=== PATIENT | male | born 1945 | race Caucasian/White ===

== ENCOUNTER 2025-04-19 10:29 | Outpatient (OUT) | payer BC, SELFPAY ==
--- OUTSIDE RECORDS SUMMARY | 2024-08-19 09:00 | XMS_ITS ---
Author Organization [facility] Address [address] [place] [address] Care Team Providers Care Patient Services Specialist Name Role Phone PCP, NO Primary Care Provider Ino Lee Unavailable [phone] Dolores Norris Unavailable [phone] REASON FOR VISIT RIGHT KNEE PAIN Medications Medication SIG (Take, Route, Frequency, Duration) Notes Start Date End Date Status Medrol Dose Pack 4 mg as directed ORAL DIRECT ED 05/17/2023Not-TakingBactrimUnknown Encounters Encounter Location Date Provider Diagnosis [facility] Office [address] [place] [address] 08/19/2024 Dolores Norris Plan Of Treatment No Information Progress Notes * RADHA FERRARO FDOB:[birth year] (79 yo M)Acc No.[id number]:08/19/2024 Patient:?RADHA FERRARO :?Dolores Norris CNPDOB:1945???Age:78 Y ???Sex:MaleDate:08/19/2024Phone:[phone]:[address], [place], [place]Qeh:NO PCP Subjective: * Chief Complaints: * 1 . RIGHT KNEE PAIN. * Medical History: * Medications: N ot-Taking/PRN Medrol Dose Pack 4 mg tablet as directed ORAL DIRECTED , Unknown Bactrim Objective: * Vitals: Assessment: Plan: * Treatment: Forms: * Images: * Electronic signature of Dolores Norris CNP on 04/19/2025 at 10:36 AM ESTSign off status: Pending * Provider: Dionicio Norris CNP Date: 0 08/19/2024 Generated for Printing/Faxing/eTransmitting on:?04/19/2025 10:36 AM EST
--- OUTSIDE RECORDS SUMMARY | 2025-04-18 05:54 | XMS_ITS | Continuity of Care Document ---
Author Organization [facility] Address [address] [place] [address] Phone Care Team Providers Care Rn Compliance Name Role Phone NO FAMILY, PHYSICIAN Primary Care Provider Unava Leticia De La Fuente DO Emergency Provider Miguel Prado MD Admit Provider Miguel Prado MD Other Provider Gamal Moreno MD Attending Provider Gamal Moreno MD Other Provider Shelly Waite APRN Primary Care Provider Shelly Waite APRN Attending Provider Stacie Bolivar APRN Attending Provider Care Teams Patient Care Team Team Status: Active Member Role/Relationship Status Dates Shelly Waite APRN VACUUM FILTER OPERATOR-C Primary Care Provider Active Visit Care Team Team Status: Active Member Role/Relationship Status Dates PHYSICIAN NO FAMILY Primary Care Provider Active Start: February 15, 2025 Sanjuana العلي ProviderActiveStart: February 15, 2025 Husam Vann ProviderActiveStart: February 15, 2025 Clyde Vann ProviderActiveStart: February 15, 2025 Viktor Barger ProviderActiveStart: February 15, 2025 Clyde Barger ProviderActiveStart: February 15, 2025 Visit Care Team Team Status: Inactive Member Role/Relationship Status Dates Shelly Waite APRN VACUUM FILTER OPERATOR-C Primary Care Provider Active Start: February 032024 End: February 21, 2025Shelly Waite APRN VACUUM FILTER OPERATOR-CAttending ProviderActive Start: February 21, 2025 End: February 21, 2025 Visit Care Team Team Status: Inactive Member Role/Relationship Status Dates Shelly Waite APRN VACUUM FILTER OPERATOR-C Primary Care Provider Active Start: March End: March 21, 2025Shelly Waite APRN VACUUM FILTER OPERATOR-CAttenyang ProviderActive Start: March 21, 2025 End: March 21, 2025 Visit Care Team Team Status: Active Member Role/Relationship Status Dates Shelly Waite APRN VACUUM FILTER OPERATOR-C Primary Care Provider Active Start: March Marci Jo ProviderActiveStart: March 27, 2025 Patient Care Team Team Status: Inactive Member Role/Relationship Status Dates Shelly Waite APRN VACUUM FILTER OPERATOR-C Primary Care Provider Active Start: April 182024 End: April 18, 2025Shelly Waite APRN VACUUM FILTER OPERATOR-CAttenyang ProviderActive Start: April 18, 2025 End: April 18, 2025 Chief Complaint and Reason for Visit Chief Complaint Admit Date rt arm pain post surgery February 15, 2025 3:03pm [facility] Care/Hospital f/u February 21 10:49am 4 week F/U March 21, 2025 8 :43am Open Wound March 27, 2025 2 :13pm 4 week f/u April 18, 2025 10:21am Reason for Visit Admit Date Benign essential HTN February 15 3:03pm Cellulitis of arm, right February 15, 2025 3:03pm Skin cancer February 15, 2025 3:03pm Cellulitis of arm, right February 21, 2025 10:49am Hospital discharge follow-up February 032024 10:49am Hypertension February 21, 2025 10:49am Open wound of arm with complication Sept ember 2024 10:49am Hypertension March 21, 2025 8 :43am Cellulitis of arm, right March 27 2 025 2:13pm Open wound of arm with complication Octo 2024 2:13pm S/P Mohs surgery for basal cell carcinom a March 27, 2025 2:13pm Hypertension April 18, 2025 10:21am Reason for Referral Type Reason(s) Provider Provider Contact Information Mercedes augustine Address Start Date Her office is accepting new patients. She will be your Primary Care Provider. Please bring your insurance card and a photo ID.Shelly Waite APRN PRODUCTION TROUBLESHOOTER Work Phone: [phone] [facility] [address] Allergies, Adverse Reactions, Alerts Allergen Type Severity Reaction Last Updated Verified Status No Known Allergies Allergy Unknown April 18, 2025 10:24amYesActive Social History Smoking Status Status Start Date End Date Date of Observa tion Never smoked tobacco (finding) March 27, 2025 2:26pm Observation Status Observation Response Date of Response Legal Sex [facility] (finding[facility] 1945 Problems Active Problems Problem Diagnosis/Recorded Date Onset Date Stat S/P Mohs surgery for basal c ell carcinoma February 26, 2025 1:24pm Unknown Active Screening for prostate cancer April 18, 2025 10:3 8am Unknown Active Cellulitis of arm, right February 15, 2025 2:09pm U nknown Active Skin cancer February 15, 2025 11:31am Unknown Active Benign essential HTN February 15, 2025 5:11pm Unkno wn Active Cancer of skin of right upper arm February 26, 2025 1:11pm Unknown Active Open wound of arm with complication February 23 5:19pm Unknown Active Hospital discharge follow-up February 21, 2025 10:1 0am Unknown Active Hypertension February 21, 2025 10:01am Unknown Active Medications Medication Status Dose Units Route Directions Qty Days Refills S tart Date Stop Date End Date Reason(s) Instructions Adherence Prednisolone-Moxifloxacin Hc l 1-0.5 % drops,suspension Discontinued 1 DROPS OPHTHALMIC Daily February 15, 2025 11:00pmSept2024 1:16pmLinezolid 600 mg tablet Ljyaayrgclvh040BLCPWcoqz gsnhq9528Vddnsrepr 15th, 2025 11:00pmSeptember 2024 1:15pmCiprofloxacin Hcl 750 mg vigrdiXjbferkqnipt383CIFRHmckd pencs3790 February 17, 2025 11:00pmSeptember 2024 1:15pmLisinopril 40 mg Tablet Viyntmvphujg07JZAZEsifl55867Seezaayxh 15th, 2025 11:00pmOctober 2024 8:06amRx Discharge Order XzttzvSodqadcphdra2NTDVHMLDQVTZHUGcxk61Nwsbbrikb 15th, 2025 11:00pmSeptember 2024 10:00amAcetaminophen (Tylenol) 325 mg Tablet Pbhdny467CZGKDxdit 6 hours as needed for Pain Scale 1 - 3 or kvirv77870Pubcumsxh 15th, 2025 11:00pmComplies with drug therapyAmlodipine 5 mg tabletDiscontinued5 DQESZwpsp31575Adzxfcy 2024 11:00pmNovember 2024 10:46amHypertension Essential (primary) hypertensionLisinopril 40 mg mpfvzvNnpxrz34QPBSCxvty06892 March 21, 2025 8:02amHypertension Essential (primary) hypertensionComplies with drug therapyAmlodipine 10 mg bztvfyGbmpiy75HOARJabsx17324Mbyfbglf 2024 10:40amHypertension Essential (primary) hypertensionComplies with drug therapy Vital Signs Vital Reading Result Reference Range Collection Date/Time Height 71 [in_i] February 15, 2025 3:99kqOvabuj59.00 kgSeptember 2024 4:54amBody Qnkprtqvaia61.9 [degF]97.6-99.0September 2024 10:23amHeart Rate62 /min 60-100pt2024 10:23amRespiratory rate20 /lzm50-21Ektuvqoey 16th, 2025 10:23amOxygen saturation by Pulse ylnqexuz36 %95-100September 2024 10:23amBP Fngiobbk705 mm[Hg]100-140September 2024 10:23amBP Oulhiflff69 mm[Hg]60-100September 2024 10:95jbJmyuhb26 [in_i]February 21, 2025 9:43yvDtcqlb63.98 [facility] 2024 9:55amBody Cklrhchjcic44.7 [degF] 97.6-99.0[facility] 2024 9:55amHeart Rate73 /tym44-990Hjhoxqmug 2024 9:55amOxygen saturation by Pulse ysfqjmew90 %95-100[facility] 2024 9:55amBP Nhldpcop109 mm[Hg]100-140[facility] 2024 10:17amBP Dlmlmchhd40 mm[Hg] 60-100[facility] 2024 10:17amBMI (Body Mass Index)28.5 kg/g8Pvojixicf 2024 9:60fjCjdwqj92 [in_i]March 21, 2025 7:22stDdbhne11.62 kgOctrockcastle regional hospital 2024 7:51amBody Vktreusqjve60.3 [degF]97.6-99.0[facility] 2024 7:51amHeart Rate71 /zgp02-119Nviqtkh 2024 7:51amOxygen saturation by Pulse yxiexmep889 %95-100Oct[facility] 2024 7:51amBP Ehlnxcjf155 mm[Hg]100-140Oct[facility] 2024 8:06amBP Eznvxqzkn773 mm[Hg]60-100Octrock[facility] 2024 8:06amBMI (Body Mass Index) 28.1 kg/h9Dtofdjd 2024 7:07jwJdmfrj32 [in_i]March 27, 2025 1:26pm Pxwkjs77.98 kgOctrockcastle regional hospital 2024 1:26pmBody Mwokjcabddk08.6 [degF]97.6-99.0 March 27, 2025 1:17pmHeart Rate83 /upd59-317Porbson 2024 1:17pm Respiratory rate24 /usy40-73Srmjrvv 2024 1:17pmBP Wkliuirg969 mm[Hg] 100-140Oct[facility] 2024 1:17pmBP Dhwawnsms58 mm[Hg]60-100Oct[facility] 2024 1:17pmBMI (Body Mass Index)28.5 kg/p7Nosnazp 2024 1:24zcNydose98 [in_i] April 18, 2025 10:05zaEcpksd92.53 kgApril 18, 2025 10:25amBody Kszuyxdbqkw59.1 [degF]97.6-99.0April 18, 2025 10:25amHeart Rate68 /min 60-100April 18, 2025 10:25amOxygen saturation by Pulse qremthvl95 %95-100 April 18, 2025 10:25amBP Phjvwncc562 mm[Hg]100-140April 18, 2025 10:25amBP Uojdoyqep02 mm[Hg]60-100April 18, 2025 10:25amBMI (Body Mass Index)28.4 kg/e9GgzltubyApril 18, 2025 10:25am Advance Directives Advance Directive Response Recorded Date/ Time Advance Directives No February 1:34pm Insurance Providers Guarantor Ej Camacho Address [address] [address] Info.Home Phone: Coverage Status Update:2025 Payer Group Member ID Coverage Type Subscriber Relationship to Subscriber Effective Date Expiration Date MMO Net[employer] Access [address] [address] [facility] [address] Work Phone: Id: [id number] [employer] Id: [id number] [id number] [facility] [address] Home Phone: Encounters Encounter Location(s) Arrival/Admit Date Discharge/Departure Date Discharge/Departure Disposition Provider(s) Non-patient / Non-visit -[facility] Infect Dis February 15, 2025 3:03pm KOLBY Martinseparted Physician/[facility] 10:49amSept2024 11:50amDischarged to home care or self care (routine discharge)Shelly Waite APRN CNPDeparted Physician/Provider Office Visit-[facility] 2024 8:43am March 21, 2025 9:21amDischarged to home care or self care (routine discharge)Shelly Waite APRN CNPRegistered Recurring-Wound [facility] [place] March 27, 2025 2:13pmPrudencio Falk APRNDeparted Physician/Provider Office Visit-[facility] 2024 10:21amNovember 2024 10:52amDischarged to home care or self care (routine discharge)Shelly Waite APRN PRODUCTION TROUBLESHOOTER Recent Diagnosis Onset Date Admit Date Benign essential HTN Unknown February 032024 3:03pm Cellulitis of arm, right Unknown Septemb er 2024 3:03pm Skin cancer Unknown February 15, 2025 3:03pm Cellulitis of arm, right Unknown Septemb er 2024 10:49am Hospital discharge follow-up Unknown Feb 10:49am Hypertension Unknown February 21, 2025 10:49am Open wound of arm with complication Unknown February 21, 2025 10:49am Hypertension Unknown March 21 8:43am Cellulitis of arm, right Unknown March 27, 2025 2:13pm Open wound of arm with complication Unknown March 27, 2025 2:13pm S/P Mohs surgery for basal cell carcinoma Unknow n March 27, 2025 2:13pm Hypertension Unknown April 18, 2 025 10:21am Assessments Diagnosis Onset Date Resolution Status Admit Date Benign essential HTN acuteSeptember 2024 3:03pmCellulitis of arm, rightacuteSeptember 2024 3:03pmSkin canceracuteSeptember 2024 3:03pmCellulitis of arm, right acuteSeptember 2024 10:49amHospital discharge follow-upacuteSeptember 2024 10:49amHypertensionacuteSeptember 2024 10:49amOpen wound of arm with complicationacuteSeptember 2024 10:49amHypertensionacuteOctober 2024 8:43amCellulitis of arm, rightacuteOctober 2024 2:13pmOpen wound of arm with complicationacuteOctober 2024 2:13pmS/P Mohs surgery for basal cell carcinomaacuteOctober 2024 2:13pmHypertensionacuteNovember 2024 10:21am Plan of Treatment Author Shelly MartinezSelect [facility]ronAutredOctrockcastle [facility] hospital 2024 8:27amContinue Lisinopril Added Amlodipine 5mg for blood pressure control Systolic needs to be less then 140 and diastolic needs to less than 90 Follow-up in 4 weeks Recommended for pt to get a blood pressure cuff to monitor at home. Risk of medical noncompliance explained to patient, including CVA, MA, kidney damage, even sudden . Prior to your visit today we reviewed your chart and outlined the testing and treatment needed for your care. We discussed the possible complications of high blood pressure, including increased risk for heart disease, stroke, and kidney disease. Our goal is to keep your blood pressure below 130/85 (an preferably < 120/80) and maintain a healthy weight with a BMI less than 26. We are working together to achieve these goals with the following plan; healthier diet, increased activity and exercise, understanding your medications, and your compliance. Author Shelly GrigsbyFulton County Health CenterAuthoredSeptember 2024 5:23pmThe patient was seen today in follow-up from recent hospital stay. All available hospital records were reviewed and discussed with the patient. Hospital discharge medications were reviewed. Any changes are noted above. Above goal He was started on Lisinopril 40mg 4 days ago. Continue to take daily. Continue to monitor blood pressure at home. Follow-up in 4 weeks Prior to your visit today we reviewed your chart and outlined the testing and treatment needed for your care. We discussed the possible complications of high blood pressure, including increased risk for heart disease, stroke, and kidney disease. Our goal is to keep your blood pressure below 130/85 (an preferably < 120/80) and maintain a healthy weight with a BMI less than 26. We are working together to achieve these goals with the following plan; healthier diet, increased activity and exercise, understanding your medications, and your compliance. Continue currently prescribed -- Linezolid and Cipro Monitor for any worsening redness, swelling or purulent draiange. Continue dressing changes/ Discussed with pt and granddaughter to continue to use current dressings that were provide and will need to purchase the silver dressing Referral placed to the wound clinic Called wound clinic to make and appt and get him scheduled, messaged was left due to not being open on Fridays. Also provided pt with the phone number to call Monday as it does appear the wound is larger than is it was while in hospital Call Dermatology to follow-up sooner. Future Tests Future scheduled test information is unavailable Pending Tests Pending diagnostic test information is unavailable Future Visits Future appointment information is unavailable Future Procedures Procedure Name Ordered Date Scheduled Date Admit Status Order February 15, 2025 4:27pm S eptember 2024 4:27pm Discharge Order February 18, 2025 1:26pm Sept ember 2024 1:26pm Consult to Infectious Diseases February 15, 2025 4:27pm February 15, 2025 4:27p m Lipid Panel April 18, 2025 10:37am PSA Screen (Yearly Only)April 18, 2025 10:37am Future Medications Future medication information is unavailable Patient Instructions Instruction Admit Date Know your Meds February 15, 2025 3:03pm
--- OUTSIDE RECORDS SUMMARY | 2025-04-19 10:36 | XMS_ITS | Clinical Summary ---
Author Organization [facility] Address [address], [address] [place] [address] Care Team Providers Care Recruiter Manager Name Role Phone Unavailable Primary Care Provider Unavailabl e Allergies No known active allergies Medications MedicationSigDispense QuantityRefillsLast FilledStart DateEnd DateStatus cephALEXin (KEFLEX) 500 MG capsule Take 1 capsule by mouth 4 times daily 40 capsule 04/01/2023ctive Active Problems ProblemNoted DateDiagnosed DateOther specified arthritis, right knee pseudogout 07/02/2020Infective arthritis (HCC) right knee07/01/2020ile leak, postoperative 06/30/2020ain of right eye06/29/2020/P laparoscopic potuznagvuvtaxq74/24/2021 History of prostate bkpfze7911/25/2015 Resolved Problems ProblemNoted DateDiagnosed DateResolved DateAcute kidney injury (nontraumatic) /cute xcvaijxitwnrf26/22/202101/ Family History RelationNameStatusCommentsFatherDeceasedMaternal GrandfatherDeceasedMaternal GrandmotherDeceasedMotherDeceasedPaternal GrandfatherDeceasedPaternal GrandmotherDeceased Social History Tobacco UseTypesPacks/DayYears UsedDateSmoking Tobacco: NeverSmokeless Tobacco: NeverAlcohol UseStandard Drinks/WeekCommentsNot Currently0 (1 standard drink = 0.6 oz pure alcohol)AUDIT-CAnswerDate RecordedQ1: How often do you have a drink containing alcohol?Never04/20/2023Q2: How many drinks containing alcohol do you have on a typical day when you are drinking?Patient does not drink04/20/2023Q3: How often do you have six or more drinks on one occasion?Never3PHQ-2 AnswerDate RecordedPHQ-9 Total Aenkj143Sex and Gender InformationValue Date RecordedSex Assigned at BirthNot on fileLegal MzxEorz3307/15/2012 11:47 AM ESTGender IdentityNot on fileSexual OrientationNot on file Last Filed Vital Signs Vital SignReadingTime TakenCommentsBlood Xnqzdpqe519/7008 12:37 PM EDT Bhnxx768101/31/2024 12:37 PM IAQKkynpwknmpr22.5 ??C (97.7 ??F)01/31/2024 12:37 PM EDTRespiratory Aaov000301/31/2024 3:10 PM EDTOxygen Yldwftigrs45%01/31/2024 12:37 PM EDTInhaled Oxygen Concentration--Yssbox69.6 kg (180 lb)01/31/2024 12:38 PM CKHTwduds233.3 cm (5' 11 )01/31/2024 12:37 PM EDTBody Mass Index25. 12:37 PM EDT Plan of Treatment Health MaintenanceDue DateLast DoneCommentsDepression Mggdzz6909/05/1958Hepatitis C vcnsyz3909/05/1964DTaP/Tdap/Td vaccine (1 - Tdap)1965Prostate Specific Antigen (PSA) Screening or Bcgnzjdbeb97/03/1987Pneumococcal 50+ years Vaccine (1 of 1 - PCV)1996Shingles vaccine (1 of 2)1996Respiratory Syncytial Virus (RSV) or age 60 yrs+ (1 - 1-dose 75+ series)2021nnual Wellness Visit (Medicare)06/30/2023Flu vaccine (#1)01/03/2025OVID-19 Vaccine ( - season)2025Hepatitis A vaccineAged OutNo longer eligible based on patient's age to complete this topicHepatitis B vaccineAged OutNo longer eligible based on patient's age to complete this topicHib vaccineAged OutNo longer eligible based on patient's age to complete this topicMeningococcal (ACWY) vaccineAged OutNo longer eligible based on patient's age to complete this topicMeningococcal B vaccineAged OutNo longer eligible based on patient's age to complete this topicPolio vaccineAged OutNo longer eligible based on patient's age to complete this topic Medical Devices ImplantedTypeAreaManufacturerDevice IdentifierShelf Expiration DateModel / Serial / LotClip Int L Polymer Vinnie Lig Hem O Vinnie Implanted:Qty: 1 on 06/28/2020 by Francisco [id number] / / Insurance Advance Directives * Full Code (Latest Code Status on File) Date ActivatedDate InactivatedComments07/01/2020 4:19 AM07/03/2020 4:59 PM * Full Code Date ActivatedDate InactivatedComments06/27/2020 10:52 PM07/01/2020 4:06 AM * Full Code Date ActivatedDate InactivatedComments06/26/2020 5:08 PM06/27/2020 9:36 PM
--- OUTSIDE RECORDS SUMMARY | 2025-04-19 10:38 | XMS_ITS | Patient Health Record ---
Author Organization [facility] Address [address] [place] [address] Support Name Relationship Address Phone Hillary Emergency Contact Unknown [phone] Ej Camacho Guarantor Unknown Reason For Referral No Information Plan Of Treatment No Information Insurance Providers Payer Name Payer Address Payer Phone Subscriber Number Group Number Insured Name Patient Relationship to Insured Coverage Start Date Coverage End Date SELF PAY ON PATIENT DEMOGRAPHICS Indigo Camacho - patient is the [id number]/03/2002
--- OUTSIDE RECORDS SUMMARY | 2025-04-19 10:38 | XMS_ITS | Clinical Summary ---
Author Organization [facility] Address [address] [place], [place] [id number] Care Team Providers Care Reel System Operator Name Role Phone Chaparro Kelly MD Primary Care Provider Allergies No known active allergies Medications No known medications Active Problems ProblemNoted DateDiagnosed DateHistory of prostate lyqoic8411/25/2015Malignant neoplasm of hufyfgkt47/01/2014 Family History Medical HistoryRelationCommentsProstate CancerBrotherRelationStatusComments Brother Social History Tobacco UseTypesPacks/DayYears UsedDateSmoking Tobacco: NeverAlcohol UseStandard Drinks/WeekCommentsNo0 (1 standard drink = 0.6 oz pure alcohol)Sex and Gender InformationValueDate RecordedSex Assigned at BirthNot on fileLegal SexMale 02/27/2014 11:11 AM EDTGender IdentityNot on fileSexual OrientationNot on file Last Filed Vital Signs Vital SignReadingTime TakenCommentsBlood Crkttvon845/98011/23/2016 11:11 AM EDT Pulse--Temperature--Respiratory Rate--Oxygen Saturation--Inhaled Oxygen Concentration--Iqvwmu49.4 kg (217 lb)11/23/2016 11:11 AM AXPQdlkaq365.1 cm (5' 10.5 )03/05/2014 9:53 AM EDTBody Mass Index30. 9:53 AM EDT Plan of Treatment Health MaintenanceDue DateLast DoneCommentsAnxiety Wyaoptqcx52/03/1965Depression Eejpeoxqy13/03/1965Hepatitis C Pnrgdrnqd89/03/1965DTaP,Tdap,Td Vaccine (1 - Tdap)1965Diabetes Wonattpwj99/03/1992Pneumococcal Vaccine: 50+ (1 of 1 - PCV)1996Shingrix Vaccine (1 of 2)1996RSV Vaccine (1 - 1-dose 75+ series)2021dvance Directive Tjhaylgkfv31/01/2025ovid-19 Vaccine (2024- season)2025Influenza Vaccine (#1)2025 Insurance Care Teams Team MemberRelationshipSpecialtyStart DateEnd Date Chaparro Kelly MD [address] [facility] [place] [address] PCP - GeneralFamily Medicine02/27/14
--- OUTSIDE RECORDS SUMMARY | 2025-04-19 10:39 | XMS_ITS | Clinical Summary ---
Author Organization [facility] Address [address] [place] [address] Care Team Providers Care Payroll Benefits Administrator Name Role Phone Unallocated, N[facility] Provider Primary Care Provi lopez Social History Tobacco UseTypesPacks/DayYears UsedDateSmoking Tobacco: Never AssessedSex and Gender InformationValueDate RecordedSex Assigned at BirthNot on fileLegal Sex Male08/17/2022 6:52 PM EDTGender IdentityNot on fileSexual OrientationNot on file Last Filed Vital Signs Vital SignReadingTime TakenCommentsBlood Ljjdcdrq112/8774707/23/2020 12:00 PM EST Pulse--Temperature--Respiratory Rate--Oxygen Saturation--Inhaled Oxygen Concentration--Zsakro48.4 kg (206 lb)07/23/2020 12:00 PM RSUQzsazx855.3 cm (5' 11 )07/23/2020 12:00 PM ESTBody Mass Index28.7307/23/2020 12:00 PM EST Plan of Treatment Health MaintenanceDue DateLast DoneCommentsMedicare Annual Wellness (AWV) 1945Pneumococcal Vaccine: 65+ Years (1 of 1 - PCV)1996COVID-19 Vaccine ( - 2023- season)2025Influenza Vaccine (#1)2025 UdnlbzesouvGhctzlcirjjz75/15/2014, 02/17/2014Colorectal Cancer Screening DiscontinuedCT ColonographyDiscontinuedFIT-DNADiscontinuedFITDiscontinuedFOBT DiscontinuedSigmoidoscopyDiscontinued Procedures Procedure NamePriorityDate/TimeAssociated DiagnosisCommentsCOLONOSCOPYRoutine 02/17/2014 12:00 PM EDT from Last 3 Months or Most Recently Relevant to Health Maintenance Results * Colonoscopy (02/17/2014 12:00 PM EDT)Anatomical RegionLateralityModality EndoscopySpecimen (Source)Anatomical Location / LateralityCollection Method / VolumeCollection TimeReceived Time02/17/2014 12:00 PM EDT Narrative 02/17/2014 12:00 PM EDT PERFORMED AT [facility] LOCATION:[id number] Procedure Note CONVERSION, GENERIC - 10/20/2022 PERFORMED AT [facility] LOCATION:[id number] Authorizing ProviderResult TypeResult StatusEdana Kelly MDENDOSCOPY PROCEDURE ORDERABLESFinal Result from Last 3 Months or Most Recently Relevant to Health Maintenance Insurance * Guarantor: Ej CamachoAccount TypeRelation to PatientDate of BirthPhone Billing AddressPersonal/OuslwiWyap84/03/1946 [address] [address] Care Teams Team MemberRelationshipSpecialtyStart DateEnd Date Unallocated, Noms Provider, [place] [address] PCP - [facility]01/31/23
--- OUTSIDE RECORDS SUMMARY | 2025-04-19 10:39 | XMS_ITS | Patient Health Record ---
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 Name Role Phone PCP, NO Primary Care Provider Unavailabl e Ino Vernon Unavailable [phone] Dolores Norris Unavailable [phone] Allergies No Known Allergies Reason For Referral No Information Medications Medication SIG (Take, Route, Frequency, Duration) Notes Start Date End Date Status Medrol Dose Pack 4 mg as directed ORAL DIRECT ED 05/17/2023Not-TakingBactrimUnknown Social History Tobacco Use: Social History Observation Description Date Details (start date - stop date) Never Smoker NA - NA Smoking History Question Answer Notes Smoking Status NonSmoker Problems Problem Type SNOMED Code ICD Code Onset Dates Problem Status W/U Status Risk Notes Problem Preoperative diagnosis (12564111 1) Encounter for preprocedural laboratory examination (Z01.812) ActiveconfirmedProblemOsteoarthritis of knee (832281638)Primary osteoarthritis of right knee (M17.11)ActiveconfirmedProblemEffusion of right knee joint (478835242820959)Effusion of right knee (M25.461)ActiveconfirmedProblemDisorder of soft tissue (04181969)Swelling of right hand (M79.89)ActiveconfirmedProblem Localized infection of skin AND/OR subcutaneous tissue (876254787)Infection of right hand (L08.9)ActiveconfirmedProblemArthritis of right wrist (2065753289088588)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)ActiveconfirmedProblemWrist joint effusion (002081853)Wrist swelling, right (M25.431)Activeconfirmed Plan Of Treatment Pending Test Test Name Order Date MRI : Wrist W AND W/O Contrast Right - 7 3223 06/14/2023 SCC - CBC WITH DIFF, BMP, ESR, CRP, REUM ATOID FACTOR, DARLENE, HLA-B27 06/14/2023 Insurance Providers Payer Name Payer Address Payer Phone Subscriber Number Group Number Insured Name Patient Relationship to Insured Coverage Start Date Coverage End Date Medicare [employer] [place] [employer] [address] [place] [address] [id number] RADHA FERRARO Self - patient is the insured Medical (General) History Medical History History ICD Code Prostate cancer High Blood PressureSurgical History Surgery Date(Month/Year) Aspiration of his right knee effusion
[2025-04-19 11:35] LABS: Cholesterol 159 mg/dL (<=200); HDL Cholesterol 45 mg/dL (40-60); Triglycerides 47 mg/dL (<=150); VLDL CHOLESTEROL 9.4 mg/dL
== END 2025-04-19 10:30 | disposition home or self-care (01) ==
LOC: LAB 10:32
PROVIDERS: PCP Nurse Practitioner Family; Visit Provider Nurse Practitioner Family
DX: Z12.5 Encounter for screening for malignant neoplasm of prostate (principal); I10 Essential (primary) hypertension
CPT/HCPCS: 36415; 80061; G0103